=== PATIENT | female | born 1975 | race Hispanic/Latino ===

== ENCOUNTER → 2025-06-16 | Outpatient (CLI) | payer OTHER ==
[~2025-06-16] MED LIST: DIATR MEGLU/DIATRIZOATE SODIUM 30 ML BOTTLE ONE
--- NOTE | 2025-06-16 11:27 | HMCIMG ---
DOUBLE CONTRAST UPPER GI SERIES: With small bowel follow-through CLINICAL HISTORY: Status post bariatric surgery. Status post intussusception with bowel resection Finding: The study was performed using provocative maneuvers After swallowing effervescent crystal and thick barium, there is no definite intrinsic or extrinsic lesion seen in the esophagus. The stomach is the stomach is gastrectomy with small gastric pouch with patent anastomosis. The small bowel follow-through demonstrated normal transit time in our and a half contrast has reached large bowel.. Fluoroscopy time: 0.5 minute. IMPRESSION: Status post gastrectomy with postsurgical changes Normal transit time with hour and half it has reached the left colon.
== END | disposition home or self-care (01) ==
LOC: RAH 08:34
PROVIDERS: ATTEND Physician Assistant Medical
DX: K56.1 Intussusception (principal); Z98.84 Bariatric surgery status; Z98.890 Other specified postprocedural states
CPT/HCPCS: 74240; Q9963